=== PATIENT | female | born 1945 | race Caucasian/White ===

== ENCOUNTER → 2018-09-28 | Outpatient (CLI) | payer MEDICARE, OTHER ==
[~2018-09-28] MED LIST: Aspirin PO; CALCIUM + VITA1 EACH PO; CELEBREX100 MG PO; Hydrochlorothiazide PO; NORVASC5 MG PO; PRAVASTATIN SOD80 MG PO; VITAMIN D2000 UNI1 PO
--- NOTE | 2018-09-28 11:12 | Diagnostic Imaging Report ---
Exam: Bone mineral density study. History: OSTEOPOROSIS Comparison: None available. Discussion: Evaluation of the left hip and lumbar spine was performed. The study is technically adequate. The patient's fracture risk is compared to an age-matched control. The patient denies prior surgery/fracture of the spine, hips or forearm. Left hip femoral neck bone mineral density: 0.7 g/cm2, T-score is -1.4, Z-score is 0.5. Left hip total bone mineral density: 0.6 g/cm2, T-score is -2.5, Z-score is -0.9. Lumbar spine total bone mineral density: 0.9 g/cm2, T-score is -1.4, Z-score is 0.8. Impression: Bone mineralization by WHO Classification is osteoporosis, the fracture risk is high. Signed by: Dr. Hamzah Lyles D.O., M.M.M. on 09/28/2018 11:09 AM
--- NOTE | 2018-09-28 15:12 | Diagnostic Imaging Report ---
CT CHEST WITHOUT CONTRAST HISTORY: LUNG CANCER SCREENING COMPARISON: CT of the chest April 29, 2017. TECHNIQUE: CT scan of the chest WITHOUT intravenous contrast, using standard protocol. The chest was scanned utilizing a multidetector helical scanner from the apex to the level of the adrenal glands. Coronal and sagittal reformats are provided. IV CONTRAST: None, which limits evaluation of the vascular structures, mediastinum and soft tissues. RADIATION DOSE: Total DLP: 501.43 mGy*cm Dose modulation, iterative reconstruction, and/or weight based adjustment of the mA/kV was utilized to reduce the radiation dose to as low as reasonably achievable. COMPLICATIONS: None FINDINGS: Lines/tubes: None. Lungs and Airways: Stable prominent scarring and fibrocalcific changes in the apex of the right lung. Moderate to severe centrilobular and paraseptal emphysema, mid to upper lung slightly greater than lower lung involvement. Left lower lobe atelectasis versus scarring. Mild diffuse architectural distortion. No consolidative pneumonia or pulmonary alveolar edema. Pleura: No effusion or pneumothorax. Heart and mediastinum: The thyroid gland is normal. The heart and pericardium are within normal limits. Trace pericardial fluid. Abdomen: Limited nonenhanced views of the upper abdomen. Lymph nodes: No pathologically enlarged lymph node. Vessels: Scattered atherosclerotic vascular calcifications, including the coronary arteries. Stable appearing 3.9 cm aortic aneurysm centered near the level of the diaphragmatic hiatus. Bones: Diffusely decreased mineralization of the osseous structures limits bone detail. Accentuation of the thoracic kyphosis and multilevel degenerative disc changes. Soft tissues: Otherwise, unremarkable. IMPRESSION: 1. Stable appearing prominent right upper lung scarring and fibrocalcific changes. 2. Similar appearing moderate to severe centrilobular and paraseptal emphysema. 3. Coronary atherosclerosis. 4. Stable appearing 3.9 cm thoracoabdominal aortic aneurysm, recommend surveillance follow-up. Signed by: Dr. Hamzah Lyles D.O., M.M.M. on 09/28/2018 3:08 PM
== END ==
LOC: DX 10:16
PROVIDERS: ATTEND Internal Medicine
DX: Z12.2 Encounter for screening for malignant neoplasm of respiratory organs (principal); M81.0 Age-related osteoporosis without current pathological fracture
CPT/HCPCS: 71250; 77080

== ENCOUNTER → 2020-01-05 | Outpatient (CLI) | payer MEDICARE, OTHER ==
--- NOTE | 2020-01-05 14:30 | Diagnostic Imaging Report ---
Exam: Bone mineral density study. History: Osteopenia. Comparison: 09/28/2018 Discussion: Evaluation of the left hip and lumbar spine was performed utilizing DEXA Hologic bone densitometer. The study is technically adequate. Left hip total bone mineral density: 0.707gm/cm2, T-score is -1.9, Z-score is -0.3. Left hip femoral neck bone mineral density: 0.655gm/cm2, T-score is -1.7, Z-score is 0.2. Lumbar spine total bone mineral density:0.938gm/cm2, T-score is-1.0, Z-score is 1.3. Impression: 1. Osteopenia of the left hip, fracture risk is increased 2. Normal bone mineral density of the lumbar spine, fracture risk is not increased. The BMD change versus baseline is 10.6% and the BMD change versus previous 10.6% . Least significant change (LSC) for bone mineral density as provided by [employer] is 0.023 g/cm2 for lumbar spine and 0.027 g/cm2 for total hip. 10 -year fracture risk per WHO Fracture Risk Assessment Tool (FRAX) for: Not reported because prior hip or vertebral fracture. Patient treated for osteoporosis. The patient's fracture risk is compared to an age-matched control. Medical evaluation for secondary causes of low bone bone mineral density may be appropriate. Correlate clinically for the necessity and timing of the next bone mineral density study. Signed by: Dr. Cain Mooney M.D. on 01/05/2020 2:27 PM
== END ==
LOC: MAMMO 12:42
PROVIDERS: ATTEND Internal Medicine
DX: Z12.31 Encounter for screening mammogram for malignant neoplasm of breast (principal); M81.0 Age-related osteoporosis without current pathological fracture
CPT/HCPCS: 77067; 77080

== ENCOUNTER 2022-05-05 15:00 | Inpatient (IN) | payer MEDICARE, OTHER ==
[~2022-05-05] VITALS: Ht 162.6 cm; Wt 82.6 kg
[2022-05-05] MEDS ORDERED: SODIUM CHLORIDE 0.9% 1000ML 1,000 ML IV STA (15:16)
[2022-05-05 15:38] LABS: BASOPHILS # (AUTO) 0.1 (0.0-0.1); BASOPHILS % 1.1 % (0.0-1.0); EOSINOPHILS # (AUTO) 0.2 (0.0-0.4); HEMATOCRIT 47.8 % (34.2-44.1); HEMOGLOBIN 14.9 g/dL (12.0-16.0); LYMPHOCYTES # (AUTO) 1.1 (1.0-3.2); MEAN CORPUSCULAR HEMOGLOBIN 27.9 pg (28-32); MEAN CORPUSCULAR HGB CONC 31.2 g/dL (31-35); MEAN CORPUSCULAR VOLUME 89.5 fL (81-99); MONOCYTES # (AUTO) 0.7 (0.2-0.8); MONOCYTES % 9.4 % (4.4-11.3); NEUTROPHILS % 71.2 % (38.7-80.0); PLATELET COUNT 268 x10e3/uL (140-360); RED BLOOD COUNT 5.34 x10e6/uL (3.6-5.1); RED CELL DISTRIBUTION WIDTH 13.9 % (11.7-14.4)
[2022-05-05 15:48] LABS: INR 1.27
[2022-05-05 15:49] LABS: PARTIAL THROMBOPLASTIN TIME 29.7 seconds (23.8-35.5)
[2022-05-05 15:56] LABS: ALBUMIN 3.7 g/dL (3.5-5.0); ALBUMIN/GLOBULIN RATIO 1.1 (0.8-2.0); ANION GAP 16.5 mmol/L (8-16); CALCIUM 8.8 mg/dL (8.4-10.2); CREATININE, SERUM 0.83 mg/dL (0.57-1.11); MAGNESIUM 1.8 MG/DL (1.3-2.1); POTASSIUM 3.5 mmol/L (3.5-5.1)
[2022-05-05 16:04] LABS: CREATINE KINASE MB 1.7 ng/mL (0-5.0)
[2022-05-05 16:14] LABS: ABG HCO3 22 mmol/L (22-26); ABG PCO2 32 mmHg (35-45); ABG PH 7.44 (7.35-7.45); ABG PO2 69 mmHg (80-105); ABG TCO2 23
[2022-05-05 17:02] LABS: CLARITY,URINE SL CLOUDY (CLEAR); COLOR,URINE AMBER (YELLOW); KETONES,URINE TRACE (NEGATIVE); LEUKOCYTE ESTERASE ,URINE NEGATIVE (NEGATIVE); NITRITE,URINE NEGATIVE (NEGATIVE); PROTEIN,URINE DIPSTICK 2+ (NEGATIVE); URINE UROBILINOGEN 0.2 mg/dL (0.2 - 1)
[2022-05-05 17:22] LABS: BACTERIA,URINE MODERATE /HPF; EPITHELIAL CELLS,URINE RARE /LPF; RBC,URINE 0-5 /HPF (0-5); WBC,URINE (MAN) 0-5 /HPF (0-5)
[2022-05-05] MEDS ORDERED: FUROSEMIDE INJ 10 MG/ML 4 ML VIAL IV ONE (17:30)
[2022-05-05] MEDS ORDERED: ASPIRIN 81 MG ENTERIC COATED PO STA (17:37)
[2022-05-05] MEDS ORDERED: ONDANSETRON HCL INJ 2MG/ML 2ML 2 MG/ML VIAL IV PRN (17:45)
[2022-05-05] MEDS: HYDRALAZINE HCL 20 MG/ML VIAL IV PRN (20:31)
[2022-05-05 22:45] VITALS: BP 151/85
[2022-05-05 22:50] VITALS: BP 151/85
[2022-05-06] VITALS (8 sets, daily range): BP systolic 125–165; BP diastolic 63–105
[2022-05-06] MEDS ORDERED: LASIX10 MG/ML PO (00:22)
[2022-05-06] MEDS ORDERED: PHENTERMINE HCL15 MG (00:22)
[2022-05-06] MEDS ORDERED: BAYER WOMEN'S1 EACH (00:22)
[2022-05-06] MEDS ORDERED: ASPIRIN81 MG PO (00:22)
[2022-05-06 02:27] LABS: CREATINE KINASE MB 1.9 ng/mL (0-5.0)
[2022-05-06 05:20] LABS: BASOPHILS # (AUTO) 0.1 (0.0-0.1); BASOPHILS % 1.3 % (0.0-1.0); EOSINOPHILS # (AUTO) 0.3 (0.0-0.4); EOSINOPHILS % 3.9 % (0.0-6.0); HEMATOCRIT 43.5 % (34.2-44.1); HEMOGLOBIN 14.2 g/dL (12.0-16.0); LYMPHOCYTES # (AUTO) 1.1 (1.0-3.2); LYMPHOCYTES % 16.2 % (18.0-39.1); MEAN CORPUSCULAR HEMOGLOBIN 27.8 pg (28-32); MEAN CORPUSCULAR HGB CONC 32.6 g/dL (31-35); MEAN CORPUSCULAR VOLUME 85.1 fL (81-99); MONOCYTES # (AUTO) 0.7 (0.2-0.8); MONOCYTES % 10.8 % (4.4-11.3); NEUTROPHILS # (AUTO) 4.5 (2.1-6.9); NEUTROPHILS % 67.7 % (38.7-80.0); PLATELET COUNT 239 x10e3/uL (140-360); RED BLOOD COUNT 5.11 x10e6/uL (3.6-5.1)
[2022-05-06 05:50] LABS: ALBUMIN 3.3 g/dL (3.5-5.0); ALBUMIN/GLOBULIN RATIO 1.1 (0.8-2.0); ANION GAP 16.1 mmol/L (8-16); CALCIUM 8.9 mg/dL (8.4-10.2); CHOL/HDL RATIO 3.9 (3.0-3.6); CREATININE, SERUM 0.74 mg/dL (0.57-1.11); POTASSIUM 3.1 mmol/L (3.5-5.1)
[2022-05-06 06:57] LABS: CREATINE KINASE MB 1.7 ng/mL (0-5.0)
[2022-05-06] MEDS ORDERED: POTASSIUM CHLORIDE 20 MEQ TAB CR PO STA (09:42)
[2022-05-06] MEDS: ASPIRIN 81 MG ENTERIC COATED PO SCH (09:54)
[2022-05-06 14:32] LABS: CREATINE KINASE MB 1.7 ng/mL (0-5.0)
[2022-05-06] MEDS ORDERED: POLYETHYLENE GLYCOL 3350 17 GM PACK PO PRN (14:45)
[2022-05-06] MEDS ORDERED: ACETAMINOPHEN 325 MG TAB PO PRN (14:45)
[2022-05-06] MEDS ORDERED: ENOXAPARIN 30 MG/0.3 ML SYR SC SCH (17:00)
[2022-05-06] MEDS ORDERED: IOPAMIDOL 370 MG/ML 100 ML INFUS..BTL INJ ONE (17:09)
[2022-05-06] MEDS: FAMOTIDINE 20 MG/2 ML VIAL IV SCH (17:24)
[2022-05-06] MEDS: CELECOXIB 100 MG CAP PO SCH (17:25)
[2022-05-06] MEDS: DOCUSATE SODIUM 100 MG CAP PO SCH (17:25)
[2022-05-06] MEDS: FUROSEMIDE 40 MG TAB PO SCH (17:25)
[2022-05-06] MEDS ORDERED: SIMVASTATIN 40 MG TAB PO SCH (21:00)
[2022-05-06] MEDS: PRAVASTATIN 20 MG TAB PO SCH (21:04)
[2022-05-06] MEDS: HYDRALAZINE HCL 20 MG/ML VIAL IV PRN (21:18)
[2022-05-07] VITALS (8 sets, daily range): BP systolic 115–163; BP diastolic 65–92
[2022-05-07 04:57] LABS: BASOPHILS # (AUTO) 0.1 (0.0-0.1); BASOPHILS % 1.2 % (0.0-1.0); EOSINOPHILS # (AUTO) 0.4 (0.0-0.4); EOSINOPHILS % 7.3 % (0.0-6.0); HEMATOCRIT 44.9 % (34.2-44.1); HEMOGLOBIN 14.1 g/dL (12.0-16.0); LYMPHOCYTES # (AUTO) 1.2 (1.0-3.2); LYMPHOCYTES % 20.7 % (18.0-39.1); MEAN CORPUSCULAR HEMOGLOBIN 27.9 pg (28-32); MEAN CORPUSCULAR HGB CONC 31.4 g/dL (31-35); MEAN CORPUSCULAR VOLUME 88.9 fL (81-99); MONOCYTES # (AUTO) 0.7 (0.2-0.8); MONOCYTES % 11.4 % (4.4-11.3); NEUTROPHILS # (AUTO) 3.5 (2.1-6.9); NEUTROPHILS % 59.2 % (38.7-80.0); PLATELET COUNT 244 x10e3/uL (140-360); RED BLOOD COUNT 5.05 x10e6/uL (3.6-5.1); RED CELL DISTRIBUTION WIDTH 13.9 % (11.7-14.4)
[2022-05-07 05:14] LABS: ALBUMIN 3.3 g/dL (3.5-5.0); ALBUMIN/GLOBULIN RATIO 1.1 (0.8-2.0); ANION GAP 13.6 mmol/L (8-16); CALCIUM 8.8 mg/dL (8.4-10.2); CREATININE, SERUM 0.85 mg/dL (0.57-1.11); MAGNESIUM 1.7 MG/DL (1.3-2.1); PHOSPHORUS 4.3 MG/DL (2.3-4.7); POTASSIUM 3.6 mmol/L (3.5-5.1)
[2022-05-07 05:33] LABS: CHOL/HDL RATIO 3.8 (3.0-3.6)
[2022-05-07 05:42] LABS: THYROID STIMULATING HORMONE 1.622 uIU/mL (0.350-4.940)
[2022-05-07] MEDS: FUROSEMIDE 40 MG TAB PO SCH ×2 (06:22→17:31)
[2022-05-07] MEDS ORDERED: CALCIUM CARBONATE PO SCH (09:00)
[2022-05-07] MEDS: CELECOXIB 100 MG CAP PO SCH ×2 (09:00→17:00)
[2022-05-07] MEDS ORDERED: [UNRECOGNIZED DRUG - OTHER] PO SCH (09:00)
[2022-05-07] MEDS ORDERED: VITAMIN D3 PO SCH (09:00)
[2022-05-07] MEDS: FAMOTIDINE 20 MG/2 ML VIAL IV SCH ×2 (09:00→19:18)
[2022-05-07] MEDS: OYST-CAL-D 500MG TABLET PO SCH (10:22)
[2022-05-07] MEDS: ASPIRIN 81 MG ENTERIC COATED PO SCH (10:22)
[2022-05-07] MEDS: DOCUSATE SODIUM 100 MG CAP PO SCH ×2 (10:22→17:31)
[2022-05-07] MEDS: POTASSIUM CHLORIDE 20 MEQ TAB CR PO SCH ×2 (10:22→17:31)
[2022-05-07] MEDS ORDERED: ONDANSETRON HCL 4 MG ORAL DISINTEGRATING TAB PO PRN (10:45)
[2022-05-07] MEDS ORDERED: ENOXAPARIN INJ 80 MG/0.8 ML SYR SC ONE (13:00)
[2022-05-07] MEDS ORDERED: MAGNESIUM SULF 1GRAM/DEXTROSE 100 ML IV ONE (16:30)
[2022-05-07] MEDS ORDERED: ENOXAPARIN SOD INJ 40 MG/0.4 ML SYR SC SCH (17:00)
[2022-05-07] MEDS: HYDRALAZINE HCL 20 MG/ML VIAL IV PRN (21:24)
[2022-05-07] MEDS: ENOXAPARIN INJ 80 MG/0.8 ML SYR SC SCH (21:24)
[2022-05-07] MEDS: PRAVASTATIN 20 MG TAB PO SCH (21:24)
[2022-05-07] MEDS: BUDESONIDE/FORMOTEROL 160/4.5MCG INHALER INH SCH (21:45)
[2022-05-08] VITALS (7 sets, daily range): BP systolic 103–163; BP diastolic 61–92
[2022-05-08 05:08] LABS: ANION GAP 15.4 mmol/L (8-16); CALCIUM 8.8 mg/dL (8.4-10.2); CREATININE, SERUM 0.86 mg/dL (0.57-1.11); MAGNESIUM 1.9 MG/DL (1.3-2.1); POTASSIUM 3.4 mmol/L (3.5-5.1)
[2022-05-08] MEDS: FUROSEMIDE 40 MG TAB PO SCH ×2 (06:41→17:19)
[2022-05-08] MEDS: DOCUSATE SODIUM 100 MG CAP PO SCH ×2 (08:36→16:59)
[2022-05-08] MEDS: OYST-CAL-D 500MG TABLET PO SCH (08:36)
[2022-05-08] MEDS: ASPIRIN 81 MG ENTERIC COATED PO SCH (08:36)
[2022-05-08] MEDS: POTASSIUM CHLORIDE 20 MEQ TAB CR PO SCH ×2 (08:36→16:59)
[2022-05-08] MEDS: FAMOTIDINE 20 MG/2 ML VIAL IV SCH (08:37)
[2022-05-08] MEDS: BUDESONIDE/FORMOTEROL 160/4.5MCG INHALER INH SCH ×2 (08:40→20:10)
[2022-05-08] MEDS: ENOXAPARIN INJ 80 MG/0.8 ML SYR SC SCH ×2 (08:45→21:08)
[2022-05-08] MEDS: CELECOXIB 100 MG CAP PO SCH ×2 (09:00→17:00)
[2022-05-08] MEDS ORDERED: POTASSIUM CHLORIDE 20 MEQ TAB CR PO ONE (13:00)
[2022-05-08] MEDS: FAMOTIDINE 20 MG TAB PO SCH ×2 (16:58→17:18)
[2022-05-08] MEDS: PRAVASTATIN 20 MG TAB PO SCH (21:07)
[2022-05-09] VITALS (8 sets, daily range): BP systolic 110–159; BP diastolic 69–101
[2022-05-09 04:54] LABS: BASOPHILS # (AUTO) 0.1 (0.0-0.1); BASOPHILS % 1.5 % (0.0-1.0); EOSINOPHILS # (AUTO) 0.5 (0.0-0.4); EOSINOPHILS % 7.7 % (0.0-6.0); HEMATOCRIT 48.8 % (34.2-44.1); LYMPHOCYTES # (AUTO) 1.3 (1.0-3.2); LYMPHOCYTES % 18.5 % (18.0-39.1); MEAN CORPUSCULAR HEMOGLOBIN 27.7 pg (28-32); MEAN CORPUSCULAR HGB CONC 30.7 g/dL (31-35); MONOCYTES # (AUTO) 0.8 (0.2-0.8); NEUTROPHILS # (AUTO) 4.1 (2.1-6.9); PLATELET COUNT 272 x10e3/uL (140-360); RED BLOOD COUNT 5.42 x10e6/uL (3.6-5.1); RED CELL DISTRIBUTION WIDTH 14.1 % (11.7-14.4)
[2022-05-09 05:21] LABS: ANION GAP 15.1 mmol/L (8-16); CALCIUM 9.4 mg/dL (8.4-10.2); CREATININE, SERUM 0.85 mg/dL (0.57-1.11); PHOSPHORUS 3.3 MG/DL (2.3-4.7); POTASSIUM 4.1 mmol/L (3.5-5.1)
[2022-05-09] MEDS: FUROSEMIDE 40 MG TAB PO SCH (06:13)
[2022-05-09] MEDS: BUDESONIDE/FORMOTEROL 160/4.5MCG INHALER INH SCH ×2 (07:20→19:30)
[2022-05-09] MEDS: FAMOTIDINE 20 MG TAB PO SCH ×2 (09:02→16:39)
[2022-05-09] MEDS: OYST-CAL-D 500MG TABLET PO SCH (09:03)
[2022-05-09] MEDS: POTASSIUM CHLORIDE 20 MEQ TAB CR PO SCH (09:03)
[2022-05-09] MEDS: DOCUSATE SODIUM 100 MG CAP PO SCH ×2 (09:03→16:39)
[2022-05-09] MEDS: ENOXAPARIN INJ 80 MG/0.8 ML SYR SC SCH (09:03)
[2022-05-09] MEDS: CELECOXIB 100 MG CAP PO SCH ×2 (09:04→16:39)
[2022-05-09] MEDS: ASPIRIN 81 MG ENTERIC COATED PO SCH (09:04)
[2022-05-09] MEDS: LOSARTAN POTASSIUM 25 MG TAB PO SCH (13:07)
[2022-05-09] MEDS: APIXABAN 5 MG TABLET PO SCH (16:39)
[2022-05-09] MEDS: PRAVASTATIN 20 MG TAB PO SCH (21:03)
[2022-05-10 00:27] VITALS: BP 141/55
[2022-05-10 04:30] VITALS: BP 111/56
[2022-05-10] MEDS: BUDESONIDE/FORMOTEROL 160/4.5MCG INHALER INH SCH (06:55)
[2022-05-10 08:39] VITALS: BP 135/87
[2022-05-10] MEDS ORDERED: FUROSEMIDE 40 MG TAB PO SCH (09:00)
[2022-05-10] MEDS ORDERED: POTASSIUM CHLORIDE 20 MEQ TAB CR PO SCH (09:00)
[2022-05-10 09:16] VITALS: BP 135/87
[2022-05-10] MEDS: FAMOTIDINE 20 MG TAB PO SCH (09:45)
[2022-05-10] MEDS: OYST-CAL-D 500MG TABLET PO SCH (09:45)
[2022-05-10] MEDS: ASPIRIN 81 MG ENTERIC COATED PO SCH (09:45)
[2022-05-10] MEDS: LOSARTAN POTASSIUM 25 MG TAB PO SCH (09:46)
[2022-05-10] MEDS: APIXABAN 5 MG TABLET PO SCH (09:47)
[2022-05-10] MEDS: CELECOXIB 100 MG CAP PO SCH (09:48)
[2022-05-10] MEDS: DOCUSATE SODIUM 100 MG CAP PO SCH (09:48)
[2022-05-10] MEDS ORDERED: ELIQUIS5 MG PO (11:40)
[2022-05-10] MEDS ORDERED: ASPIRIN EC81 MG PO (11:40)
[2022-05-10] MEDS ORDERED: COZAAR25 MG PO (11:40)
[2022-05-10] MEDS ORDERED: SYMBICORT 16010.2 GM INH (11:40)
[2022-05-10] MEDS ORDERED: PRAVASTATIN SOD20 MG PO (11:40)
[2022-05-10] MEDS ORDERED: FAMOTIDINE20 MG PO (11:40)
[2022-05-10] MEDS ORDERED: FUROSEMIDE40 MG PO (11:40)
[2022-05-10 12:42] VITALS: BP 165/68
== END 2022-05-10 16:05 | disposition home or self-care (01) | DRG 191 ==
LOC: ER 15:07 → ERHOLD 17:41 → MED/SURG 22:31
PROVIDERS: ADMIT Internal Medicine; ATTEND Internal Medicine
DX: J44.1 Chronic obstructive pulmonary disease with (acute) exacerbation (principal); I82.412 Acute embolism and thrombosis of left femoral vein; I11.0 Hypertensive heart disease with heart failure; I50.9 Heart failure, unspecified; J84.10 Pulmonary fibrosis, unspecified; E78.5 Hyperlipidemia, unspecified; H35.30 Unspecified macular degeneration; E11.9 Type 2 diabetes mellitus without complications; E87.6 Hypokalemia; R09.02 Hypoxemia; I87.2 Venous insufficiency (chronic) (peripheral); E83.42 Hypomagnesemia; Z90.49 Acquired absence of other specified parts of digestive tract; Z87.891 Personal history of nicotine dependence; Z86.711 Personal history of pulmonary embolism; Z86.15 Personal history of latent tuberculosis infection; Z20.822 Contact with and (suspected) exposure to COVID-19; Z79.82 Long term (current) use of aspirin
CPT/HCPCS: 36415; 71045; 71260; 80048; 80053; 80061; 81001; 82270; 82550; 82553; 82805; 83036; 83605; 83735; 83880; 84100; 84443; 84484; 85025; 85610; 85730; 87040; 87086; 87400; 93005; 93970; 94664; 94799; 99251; 99285; J0360; J0696; J1650; J1940; J3475; J7030; Q9967

== ENCOUNTER → 2022-09-08 | Day surgery (SDC) | payer MEDICARE, OTHER ==
[2022-09-05 15:24] LABS: BASOPHILS # (AUTO) 0.1 (0.0-0.1); BASOPHILS % 1.6 % (0.0-1.0); EOSINOPHILS # (AUTO) 0.6 (0.0-0.4); EOSINOPHILS % 8.8 % (0.0-6.0); HEMATOCRIT 45.1 % (34.2-44.1); HEMOGLOBIN 14.2 g/dL (12.0-16.0); LYMPHOCYTES # (AUTO) 1.2 (1.0-3.2); LYMPHOCYTES % 18.8 % (18.0-39.1); MEAN CORPUSCULAR HEMOGLOBIN 27.2 pg (28-32); MEAN CORPUSCULAR HGB CONC 31.5 g/dL (31-35); MEAN CORPUSCULAR VOLUME 86.4 fL (81-99); MONOCYTES # (AUTO) 0.6 (0.2-0.8); MONOCYTES % 9.6 % (4.4-11.3); NEUTROPHILS # (AUTO) 3.9 (2.1-6.9); NEUTROPHILS % 60.9 % (38.7-80.0); PLATELET COUNT 296 x10e3/uL (140-360); RED BLOOD COUNT 5.22 x10e6/uL (3.6-5.1); RED CELL DISTRIBUTION WIDTH 14.2 % (11.7-14.4)
[2022-09-05 15:37] LABS: INR 1.25; PARTIAL THROMBOPLASTIN TIME 32.3 seconds (23.8-35.5); PROTHROMBIN TIME 15.9 seconds (11.9-14.5)
[2022-09-05 15:59] LABS: ALBUMIN/GLOBULIN RATIO 0.7 (0.8-2.0); ANION GAP 13.8 mmol/L (8-16); CALCIUM 9.4 mg/dL (8.4-10.2); CHOL/HDL RATIO 4.2 (3.0-3.6); CREATININE, SERUM 0.87 mg/dL (0.57-1.11); POTASSIUM 3.8 mmol/L (3.5-5.1)
[~2022-09-08] VITALS: Ht 162.6 cm; Wt 80.7 kg
[2022-09-08] VITALS (11 sets, daily range): BP systolic 127–164; BP diastolic 74–115
[~2022-09-08] MED LIST changes: +ASPIRIN 325 MG TAB ONE; +ASPIRIN EC81 MG PO; +ASPIRIN81 MG PO; +BAYER WOMEN'S1 EACH; +COZAAR25 MG PO; +ELIQUIS5 MG PO; +FAMOTIDINE20 MG PO; +FENTANYL CITRATE/PF 100MCG/2 ML INJ ONE; +FUROSEMIDE40 MG PO; +HEPARIN SOD (PORCINE) 1000 UNIT/ML 30ML ONE; +HEPARIN SOD/SOD CHLORIDE 1,000 ML ONE; +HEPARIN SOD/SOD CHLORIDE 2,000 ML ONE; +IOPAMIDOL 370 MG/ML 100 ML INFUS..BTL INJ ONE; +LASIX10 MG/ML PO; +LIDOCAINE HCL 2% LOCAL 20 ML VIAL ONE; +MIDAZOLAM HCL 2 MG/2 ML VIAL ONE; +NITROGLYCERIN/D5W 200 MCG/ML 250 ML ONE; +PHENTERMINE HCL15 MG; +PRAVASTATIN SOD20 MG PO; +SODIUM CHLORIDE 0.9% 1000ML 1,000 ML ONE; +SYMBICORT 16010.2 GM INH; +VERAPAMIL HCL 2.5 MG/ML 2 ML VIAL ONE
== END | disposition home or self-care (01) ==
LOC: CATH LAB 07:58
PROVIDERS: ATTEND Internal Medicine Cardiovascular Disease
DX: I25.119 Atherosclerotic heart disease of native coronary artery with unspecified angina pectoris (principal); I11.0 Hypertensive heart disease with heart failure; I50.21 Acute systolic (congestive) heart failure; R94.31 Abnormal electrocardiogram [ECG] [EKG]; E78.5 Hyperlipidemia, unspecified; I82.502 Chronic embolism and thrombosis of unspecified deep veins of left lower extremity; I73.9 Peripheral vascular disease, unspecified; I87.2 Venous insufficiency (chronic) (peripheral); I71.23 Aneurysm of the descending thoracic aorta, without rupture; J84.10 Pulmonary fibrosis, unspecified; J44.9 Chronic obstructive pulmonary disease, unspecified; R60.0 Localized edema; Z20.822 Contact with and (suspected) exposure to COVID-19; Z01.810 Encounter for preprocedural cardiovascular examination; Z01.812 Encounter for preprocedural laboratory examination; Z79.02 Long term (current) use of antithrombotics/antiplatelets; Z79.82 Long term (current) use of aspirin; Z79.899 Other long term (current) drug therapy; Z68.31 Body mass index [BMI] 31.0-31.9, adult
CPT/HCPCS: 0223U; 36415; 80053; 80061; 83036; 85025; 85610; 85730; 93005; 93458; C1753; C1887 ×2; C1894; J1644; J2001; J2250; J3010; J7030; Q9967; 99152

== ENCOUNTER 2022-12-18 14:58 | Outpatient (RCR) | payer MEDICARE, OTHER ==
[~2022-12-18 14:58] MED LIST changes: -ASPIRIN 325 MG TAB ONE; -FENTANYL CITRATE/PF 100MCG/2 ML INJ ONE; -HEPARIN SOD (PORCINE) 1000 UNIT/ML 30ML ONE; -HEPARIN SOD/SOD CHLORIDE 1,000 ML ONE; -HEPARIN SOD/SOD CHLORIDE 2,000 ML ONE; -IOPAMIDOL 370 MG/ML 100 ML INFUS..BTL INJ ONE; -LIDOCAINE HCL 2% LOCAL 20 ML VIAL ONE; -MIDAZOLAM HCL 2 MG/2 ML VIAL ONE; -NITROGLYCERIN/D5W 200 MCG/ML 250 ML ONE; -SODIUM CHLORIDE 0.9% 1000ML 1,000 ML ONE; -VERAPAMIL HCL 2.5 MG/ML 2 ML VIAL ONE
== END 2023-01-02 ==
LOC: PT 14:58
PROVIDERS: ATTEND Specialist
DX: M17.12 Unilateral primary osteoarthritis, left knee (principal); M62.81 Muscle weakness (generalized); M25.562 Pain in left knee